=== PATIENT | female | born 1965 | race Caucasian/White ===

== ENCOUNTER 2019-07-19 13:17 | Emergency (ER) | payer OTHER ==
[2019-07-19 13:28] VITALS: BP 136/82; PULSE 80; TEMP 98.6; BMI 42.3
--- NOTE | 2019-07-19 13:29 | PDOC ---
History of Present Illness - General Chief Complaint: Respiratory Stated Complaint: COUGH, CONGESTION NASAL Time Seen by Provider: 07/19/19 13:19 - History of Present Illness Initial Comments: 07/19/19 13:28 54f with pmh of asthma presents to the Ed with dry cough, nasal congestion and muscle aches since Saturday (past 5 days) Was wheezing the past couple days but used her inhaler and her son's nebulizer which provided some relief. Denies fever, chills but has been taking motrin for her muscle aches. Also complains that the cough is worse at night when she's lying in bed. Got the flu shot. Spent some time in the emergency department last week when she took her son to get his PEG tube changed. Lot of sick people she may gotten in contact with there. Denies sore throat, chest pain, sob ,abd pain, n/v/d Past History - Past Medical History Allergies/Adverse Reactions: Allergies Allergy/AdvReac Type Severity Reaction Status Date / Time No Known Drug Allergies Allergy Verified 07/19/19 13:19 Home Medications: Ambulatory Orders Albuterol Sulfate Inhaler - [Ventolin Hfa Inhaler -] 1 - 2 inh PO QID 07/19/19 Anastrozole [Arimidex] 1 mg PO DAILY 07/19/19 Budesonide/Formeterol Fumarate [SYMBICORT 160/4.5mcg -] 1 inh PO DAILY 07/19/19 Citalopram Hydrobromide [Celexa -] 20 mg PO DAILY 07/19/19 Losartan Potassium 25 mg PO DAILY 07/19/19 Metformin HCl [Glucophage] 500 mg PO BID 07/19/19 Metoprolol Succinate [Toprol Xl] 25 mg PO DAILY 07/19/19 Pantoprazole Sodium [Protonix -] 20 mg PO DAILY 07/19/19 Rosuvastatin Calcium 5 mg PO DAILY 07/19/19 Asthma: Yes Cancer: Yes (BERAST CANCER) COPD: No Diabetes: Yes HTN: Yes Hypercholesterolemia: Yes - Psycho Social/Smoking Cessation Hx Smoking History: Former smoker Have you smoked in the past 12 months: No Information on smoking cessation initiated: No Hx Alcohol Use: No Review of Systems - Review of Systems Able to Perform ROS?: Yes Is the patient limited [place] proficient: No Constitutional: No: Symptoms Reported HEENTM: Yes: See HPI Respiratory: Yes: See HPI Cardiac (ROS): No: Symptoms Reported ABD/GI: No: Symptoms Reported : No: Symptoms Reported Musculoskeletal: No: Symptoms Reported Integumentary: No: Symptoms Reported Neurological: No: Symptoms reported All Other Systems: Reviewed and Negative *Physical Exam - Vital Signs Last Vital Signs Temp Pulse Resp BP Pulse Ox 98.6 F 80 18 136/82 97 07/19/19 13:17 07/19/19 13:17 07/19/19 13:17 07/19/19 13:17 07/19/19 13:17 - Physical Exam General Appearance: Yes: Nourished, Appropriately Dressed, Apparent Distress, Obese Respiratory/Chest: positive: Lungs Clear, Normal Breath Sounds. negative: Chest Tender, Respiratory Distress Cardiovascular: positive: Regular Rhythm, Regular Rate, S1, S2 Gastrointestinal/Abdominal: positive: Normal Bowel Sounds, Flat, Soft. negative : Tender Extremity: positive: Normal Capillary Refill, Normal Inspection, Normal Range of Motion Integumentary: positive: Normal Color, Dry, Warm Neurologic: positive: Fully Oriented, Alert, Normal Mood/Affect, Normal Response , Motor Strength 5/5 Medical Decision Making - Medical Decision Making 07/19/19 13:51 54f with pmh of asthma presenting with URI symptoms. Will give duoneb treatment, flu swab and reassess. Steroid if needed. 07/19/19 15:45 Flu negative PAtient feels much better after duoneb and prednisone. CXR normal. OK to dc. Discharge - Discharge Information Problems reviewed: Yes Clinical Impression/Diagnosis: Asthma attack Condition: Improved Disposition: HOME - Admission No - Follow up/Referral - Patient Discharge Instructions Patient Printed Discharge Instructions: DI for Asthma -- Adult Additional Instructions: Follow up with your primary care physician within the next 3-4 days. Come back to the emergency department for any new, worsening or concerning symptoms. - Post Discharge Activity
[2019-07-19] MEDS ORDERED: ALBUTEROL SO4 2.5/IPRATROPIUM 0.5 INH SOL 3 ML VIAL.NEB. NEB ONE ×2 (13:38→13:44)
[2019-07-19] MEDS ORDERED: predniSONE 20 MG TABLET (UD) PO ONE (14:10)
[2019-07-19] MEDS ORDERED: predniSONE 20 MG TABLET (UD) ONE (14:32)
--- NOTE | 2019-07-19 15:57 | PDOC ---
Attending Attestation - Resident Resident Name: LanierJoseph - ED Attending Attestation I have performed the following: I have examined & evaluated the patient, The case was reviewed & discussed with the resident, I agree w/resident's findings & plan, Exceptions are as noted - HPI HPI: 07/19/19 16:28 54-year-old female with a history of asthma, hypertension, diabetes, hyperlipidemia, breast cancer in remission, depression presents to the emergency department with 6 days of nasal congestion, productive cough, and 3 days of shortness of breath. Patient reports multiple sick contacts, as she was in the emergency department recently with her son. Reports cough has been productive of white, and at times yellow sputum. Denies any fevers or chills. Reports that shortness of breath feels like her asthma. She used her son's nebulizer machine with improvement but presented to the emergency department today as she feels that she needs steroids. She reports her asthma is typically well controlled and improves with steroids. Last asthma exacerbation was more than 1 year ago. She was admitted once as a child, never as an adult for her asthma. She has never been intubated. She only uses her Ventolin as needed for shortness of breath. Denies any chest pain. Denies any headaches, dizziness, focal weakness or numbness,, abdominal pain, nausea, vomiting, diarrhea, lower extremity edema or calf pain. No recent immobility. - Physicial Exam PE: 07/19/19 16:37 GENERAL: Awake, alert, and fully oriented, in no acute distress. Pleasant EYES: PERRLA, EOMI, sclera anicteric, conjunctiva clear ENT: Oropharynx clear without exudates. Moist mucosa NECK: Normal ROM, supple, no lymphadenopathy, JVD, or masses LUNGS: Breath sounds equal, clear to auscultation bilaterally with good air movement. +mild wheezing at L lung base>R lung base, and no crackles HEART: Regular rate and rhythm, normal S1 and S2, no murmurs, rubs or gallops ABDOMEN: Soft, nontender, normoactive bowel sounds. No guarding, no rebound. No masses EXTREMITIES: Normal range of motion, no edema. No clubbing or cyanosis. No cords, erythema, or tenderness NEUROLOGICAL: Normal speech, cranial nerves intact, equal strength SKIN: Warm, Dry, normal turgor, no rashes or lesions noted. - Medical Decision Making 07/19/19 15:55 54-year-old female presents emergency department with 1 week of nasal congestion , cough productive of white, at times yellow sputum, and shortness of breath. Patient states symptoms are persistent with previous asthma exacerbations. Vitals are within normal limits. Exam is remarkable for mild bilateral wheezing but good air movement. No increased work of breathing. Symptoms most consistent with asthma exacerbation. Flu swab was checked and is negative. Chest x-ray is clear on my read, with no infiltrates. Patient is feeling significantly better after two DuoNeb's as well as prednisone. Plan at this time to discharge with close primary follow-up and course of prednisone. Patient is clinically stable for discharge home. I discussed the physical exam findings, ancillary test results and final diagnoses with the patient. I answered all of the patient's questions. The patient was satisfied with the care received and felt comfortable with the discharge plan and treatment plan. The patient will call their primary care physician within 24 hours to arrange follow-up and will return to the Emergency Department with any new, persistent or worsening symptoms. 07/20/19 10:46 XR final read negative
== END 2019-07-19 16:09 | disposition home or self-care (01) ==
LOC: FER 13:17
PROC: 3E0F7GC Introduction of Other Therapeutic Substance into Respiratory Tract, Via Natural or Artificial Opening (ICD-10-PCS; principal; 2019-07-19)
DX: J45.901 Unspecified asthma with (acute) exacerbation (principal)
CPT/HCPCS: 71046-TC-FY; 87804; 99283-25